=== PATIENT | male | born 1995 | race Caucasian/White ===

== ENCOUNTER → 2018-03-14 | Day surgery (SDC) | payer BC ==
[~2018-03-14] VITALS: Ht 182.9 cm; Wt 65.9 kg
[~2018-03-14] MED LIST: ACETAMINOPHEN 1000 MG/100 ML 100 ML IV ONE; ACETAMINOPHEN/HYDROcodone 325 MG/5 MG TAB PO PRN; BACITRACIN TOP OINT 15 GM TUBE ONE; BUPIVACAINE HCL PF 0.5% 30 ML VIAL ONE; CENTCHW4 CHEW; CEPH250C PO; DEXAMETHASONE SOD PHOS 4 MG/ML VIAL IV ONE; DO NOT ADM ANY ANTICOAGULANT DRUGS PRN; ESMOLOL HCL 100 MG/10 ML VIAL IV ONE; FAMOTIDINE 20 MG/2 ML VIAL ONE; GLYCOPYRROLATE 1 MG/5 ML SYRINGE IV PUSH ONE; HYDROmorphone HCL PF 0.5 MG/0.5 ML SYRINGE IV PRN; KETAMINE HCL 50 MG/5 ML SYRINGE ONE; KETOROLAC TROMETHAMINE 30 MG/ML (IVP) VIAL IV PUSH ONE; LACTATED RINGER'S 1000 ML INJ 1,000 ML IV ONE; LACTATED RINGER'S 1000 ML INJ 500 ML IV SCH; LIDOCAINE HCL 1% 50 ML VIAL ONE; LIDOCAINE HCL 1% PF 5 ML SYRINGE OTHER ONE; MIDAZOLAM HCL 2 MG/2 ML VIAL ONE; NEOMYCIN/POLYMYXIN 1 ML G.U. IRRIGANT ONE; NEOSTIGMINE 5 MG/5 ML SYRINGE IV PUSH ONE; ONDANSETRON HCL 4 MG/2 ML VIAL IV PUSH PRN; ONDANSETRON HCL 4 MG/2 ML VIAL ONE; PHENYLEPH/NS 1000 MCG/10 ML SYR IV ONE; PROPOFOL 200 MG/20 ML AMP IV ONE; ROCURONIUM INJ 50 MG/5 ML SYRINGE IV PUSH ONE; ceFAZolin 1,000 MG/NS 100 ML IV SCH; ceFAZolin INJ 1,000 MG VIAL IV ONE
[2018-03-14 15:31] VITALS: BP 145/72; PULSE 62; RESP 18; TEMP 97.4; O2SAT 100
--- NOTE | 2018-03-14 15:40 | MP ---
cc: Marine Peguero MD DATE OF OPERATION: 03/14/2018 DATE OF PROCEDURE: 03/14/2018. PREOPERATIVE DIAGNOSES: 1. Laceration, left forearm. 2. Laceration extensor carpi ulnaris tendon, left forearm. POSTOPERATIVE DIAGNOSES: 1. Laceration, left forearm. 2. Laceration extensor carpi ulnaris tendon, left forearm. PROCEDURE PERFORMED: 1. Exploration of penetrating wound, left forearm. 2. Extensor carpi ulnaris tendon reconstruction using a posterior tibialis tendon allograft. SURGEON: Marine Peguero MD ANESTHESIA: General and local. TOURNIQUET TIME: 40 minutes at 250 mmHg. IMPLANTS: One posterior tibialis tendon measuring approximately 4 x 2 cm. INDICATIONS FOR PROCEDURE: Jesus Nguyễn is a 23-year-old right hand dominant male who was working to remodel a bathroom with his father on 03/04/2018 when a mirror slipped and he sustained a laceration to his left forearm. The patient was seen in the emergency room. The wound was sutured. He presented for evaluation on 03/05/2018. Treatment options were discussed with the patient including observation versus exploration versus MRI. The patient elected to proceed with MRI. MRI was performed on 03/12/2018 which showed complete laceration of the extensor carpi ulnaris approximately 3 cm proximal to the wrist with approximate 4 cm fluid filled tendon gap. Treatment options were discussed with the patient yesterday on 03/13/2018. He elected to proceed with surgical intervention. Risks were explained to him to include wound complication, infection, rupture of the repair, need for use of a tendon autograft or allograft, need for additional surgeries, pain, stiffness, and he elected to proceed. DESCRIPTION OF PROCEDURE: The patient was identified in the preoperative holding and the correct extremity was marked. The patient was taken to the operating room where anesthesia was induced. Left upper extremity was prepped and draped in normal sterile fashion. The prior sutures were removed. The tourniquet was inflated to 250 mmHg for 40 minutes. The prior incision was extended proximally and distally in a Z-type fashion. Both ends of the extensor carpi ulnaris tendon were identified. There was approximately 2 cm of gapping. The patient was paralyzed and there was still gapping of the tendon. The decision was made to use a posterior tibialis tendon allograft. This was thawed according to family practitioner protocol. This was cut to approximately a 4 x 2 cm piece of tendon. The ends were whipstitched with a PDS tendon. Then, a Pulvertaft weave was performed on both ends of the extensor carpi ulnaris tendon. Care was taken to protect the ECU subsheath around the distal radioulnar joint. This was then sutured into place with FiberWire in both a [id number] and horizontal mattress fashion. This was then tensioned again with the patient reversed from paralysis. There was no subluxation of the tendon with supination and pronation. This had good tension and good strength. Tourniquet was released. Hemostasis was obtained. The wound was irrigated. The skin was closed with Monocryl and nylon. Approximately 10 mL of 0.5% Marcaine without epinephrine was used for local anesthesia. The patient was placed into a sugar-tong splint. He will be discharged on antibiotics. I will see him back in approximately 2 weeks for suture removal. It was discussed with the patient he should avoid any heavy lifting or use of the hand for approximately 6-8 weeks. MD UMAIR Moreira/TYRA , 02:41 PM , 03:39 PM FLO
== END | disposition home or self-care (01) ==
LOC: HSDC 08:21
PROVIDERS: ATTEND Orthopaedic Surgery
DX: S51.812A Laceration without foreign body of left forearm, initial encounter (principal); S66.329A Laceration of extensor muscle, fascia and tendon of unspecified finger at wrist and hand level, initial encounter
CPT/HCPCS: 01810; 25275; J0131; J0690; J1100; J1885; J2250; J2370; J2405; J2710; J3010; J7120